=== PATIENT | male | born 1995 | race Caucasian/White ===

== ENCOUNTER 2016-11-23 12:01 | Emergency (ER) | payer OTHER ==
[~2016-11-23] VITALS: Ht 170.2 cm; Wt 62.8 kg
[~2016-11-23 12:01] MED LIST: KEFLEX500 MG PO; MOTRIN600 MG PO; NAPROSYN500 MG PO; NOHOMEMEDS
[2016-11-23] MEDS ORDERED: INDOCIN50 MG PO (13:26)
[2016-11-23 14:03] VITALS: BP 145/88
== END 2016-11-23 13:27 | disposition home or self-care (01) ==
LOC: EME 12:01
DX: M25.531 Pain in right wrist (principal); F17.200 Nicotine dependence, unspecified, uncomplicated
CPT/HCPCS: 99281; 99283

== ENCOUNTER 2016-12-23 11:12 | Emergency (ER) | payer OTHER ==
[~2016-12-23] VITALS: Ht 170.2 cm; Wt 63.5 kg
[~2016-12-23 11:12] MED LIST changes: +INDOCIN50 MG PO
[2016-12-23] MEDS ORDERED: MOTRIN600 MG PO (12:50)
[2016-12-23 13:00] VITALS: BP 142/77
== END 2016-12-23 13:00 | disposition home or self-care (01) ==
LOC: EME 11:12
DX: T25.121A Burn of first degree of right foot, initial encounter (principal); T31.0 Burns involving less than 10% of body surface; X12.XXXA Contact with other hot fluids, initial encounter
CPT/HCPCS: 99281; 99284

== ENCOUNTER 2016-12-27 10:29 | Emergency (ER) | payer OTHER ==
[~2016-12-27] VITALS: Ht 170.2 cm; Wt 62.4 kg
[2016-12-27 11:24] LABS: HEMATOCRIT 47.7 % (38.0-50.0); MCH 31.5 PG (29.0-34.0); MCHC 35.2 G/DL (30.0-36.0); MCV 89.3 FL (86-99); PLATELET COUNT 295 K/uL (156-360); RBC DIS.WIDTH-CV 11.9 % (11.8-14.6); RBC DIS.WIDTH-SD 38.7 % (39-53); RED BLOOD COUNT 5.34 M/uL (4.00-5.50); WHITE BLOOD COUNT 8.1 K/uL (4.1-10.2)
[2016-12-27 11:33] LABS: CHLORIDE 106 mEq/L (99-109); POTASSIUM 4.2 mEq/L (3.7-5.4); SODIUM 140 mEq/L (136-147)
[2016-12-27 11:35] LABS: GLUCOSE 95 mg/dL (70-99)
[2016-12-27 11:36] LABS: ANION GAP 11 MEQ/L (2-14)
[2016-12-27 11:39] LABS: GFR ESTIMATE (CALCULATED) > 59 mL/min/
[2016-12-27 11:40] LABS: UREA NITROGEN (BUN) 14 mg/dL (9-23)
[2016-12-27] MEDS ORDERED: VENTOLIN HFA18 GM IH (12:06)
[2016-12-27 12:16] VITALS: BP 135/74
== END 2016-12-27 12:17 | disposition home or self-care (01) ==
LOC: EME 10:29
DX: R04.2 Hemoptysis (principal); F17.200 Nicotine dependence, unspecified, uncomplicated
CPT/HCPCS: 71020; 80048; 85027; 99281; 99284